=== PATIENT | male | born 1990 | race Caucasian/White ===

== ENCOUNTER 2018-08-10 22:04 | Observation (INO) | payer OTHER ==
--- NOTE | 2018-08-10 23:45 | CT ---
CT HEAD WITHOUT CONTRAST: 08/10/2018 HISTORY: Seizure. COMPARISON: None. TECHNIQUE: Serial axial CT imaging at 5 mm intervals, from the vertex through the skull base, without contrast. FINDINGS: The imaged paranasal sinuses and mastoid air cells are well aerated. There is no intracranial hemorr katherine, midline shift, mass effect, or ventricular enlargement. There is an oval calcification, measuring 0.9 x 2 cm, in the extraaxial region of the left frontal lo be on image 15, which may represent a focal area of dural calcification or a calcified meningioma. IMPRESSION: No acute findings. Incidental findings as detailed above. POS: [facility]
[2018-08-11] MEDS ORDERED: Lorazepam 2 MG/ML VIAL ONE (00:19)
[2018-08-11 00:51] LABS: #Basophils 0.1 thou/uL (0.0-0.2); #Eosinphils 0.1 thou/uL (0.0-0.7); #Lymphocytes 1.9 thou/uL (1.20-3.40); #Monocytes 0.5 thou/uL (0.11-0.59); #Neutrophils 3.6 thou/uL (1.40-6.50); %Basophils 1.1 % (0.0-1.0); %Eosinophils 2.4 % (0.0-10.0); %Lymphocytes 30.6 % (21.0-51.0); %Monocytes 8.2 % (0.0-10.0); %Neutrophils 57.8 % (42.0-75.0); Hemoglobin 13.1 g/dL (14.0-18.0); Mean Corpuscular HGB CONC 34.3 g/dL (32.0-36.0); Mean Corpuscular Hemoglobin 33.7 pg (27.0-31.0); Mean Corpuscular Volume 98.3 fL (78.0-98.0); Platelet Count 249 thou/uL (130-400); RBC Distribution Width 13.5 % (11.5-14.5); Red Blood Cell (RBC) Count 3.88 mill/uL (4.70-6.10); White Blood Cell (WBC) Count 6.2 thou/uL (4.8-10.8)
[2018-08-11] MEDS ORDERED: Fosphenytoin Sodium 1,500 MG in Sodium Chloride 0.9% 100 ML IVPB SCH (01:00)
[2018-08-11 01:18] LABS: ALT (SGPT) 18 U/L (8-55); AST (SGOT) 17 U/L (5-34); Albumin 4.1 g/dL (3.5-5.0); Alkaline Phosphatase 100 U/L (40-150); Anion Gap 11 mmol/L (10-20); BUN (Urea Nitrogen) 6 mg/dL (8.9-20.6); Bilirubin, Total 0.3 mg/dL (0.2-1.2); CK (CPK) 112 U/L (30-200); Calc. Creatinine Clearance 0 mL/min (70-130); Calcium 9.5 mg/dL (7.8-10.44); Carbon Dioxide 26 mmol/L (22-29); Chloride 106 mmol/L (98-107); Estimated GFR-MDRD Greater than 90; Globulin 2.7 g/dL (2.4-3.5); Glucose 97 mg/dL (70-105); Potassium 3.9 mmol/L (3.5-5.1); Protein, Total 6.8 g/dL (6.0-8.3); Sodium 139 mmol/L (136-145)
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
[2018-08-11] MEDS ORDERED: Lorazepam 2 MG/ML VIAL SLOW IVP PRN (03:13)
[2018-08-11] MEDS ORDERED: Ondansetron HCl/PF 4 MG/2 ML Vial IVP PRN ×2 (03:14→03:17)
[2018-08-11] MEDS ORDERED: Acetaminophen 325 MG TAB PO PRN (03:14)
[2018-08-11] MEDS ORDERED: Ondansetron ODT 4 MG TAB SL PRN (03:14)
[2018-08-11] MEDS: Acetaminophen 325 MG TAB PO PRN (03:28)
[2018-08-11] MEDS: Lorazepam 2 MG/ML VIAL SLOW IVP PRN ×2 (03:42→09:03)
[2018-08-11 04:46] VITALS: BMI 19.8
[2018-08-11 05:24] LABS: #Eosinphils 0.2 thou/uL (0.0-0.7); #Lymphocytes 1.5 thou/uL (1.20-3.40); #Monocytes 0.6 thou/uL (0.11-0.59); #Neutrophils 3.3 thou/uL (1.40-6.50); %Basophils 0.6 % (0.0-1.0); %Eosinophils 3.7 % (0.0-10.0); %Lymphocytes 26.3 % (21.0-51.0); %Monocytes 10.4 % (0.0-10.0); Hemoglobin 12.9 g/dL (14.0-18.0); Mean Corpuscular Hemoglobin 33.5 pg (27.0-31.0); Mean Corpuscular Volume 98.6 fL (78.0-98.0); Mean Platelet Volume 7.8 fL (7.4-10.4); Platelet Count 197 thou/uL (130-400); RBC Distribution Width 13.6 % (11.5-14.5); Red Blood Cell (RBC) Count 3.85 mill/uL (4.70-6.10); White Blood Cell (WBC) Count 5.5 thou/uL (4.8-10.8)
[2018-08-11 05:49] LABS: ALT (SGPT) 17 U/L (8-55); AST (SGOT) 17 U/L (5-34); Albumin 3.8 g/dL (3.5-5.0); Alkaline Phosphatase 90 U/L (40-150); Anion Gap 11 mmol/L (10-20); BUN (Urea Nitrogen) 5 mg/dL (8.9-20.6); Bilirubin, Total 0.2 mg/dL (0.2-1.2); Calc. Creatinine Clearance 154 mL/min (70-130); Calcium 8.9 mg/dL (7.8-10.44); Carbon Dioxide 24 mmol/L (22-29); Chloride 108 mmol/L (98-107); Estimated GFR-MDRD Greater than 90; Globulin 2.4 g/dL (2.4-3.5); Glucose 120 mg/dL (70-105); Potassium 3.7 mmol/L (3.5-5.1); Protein, Total 6.2 g/dL (6.0-8.3); Sodium 139 mmol/L (136-145)
[2018-08-11] MEDS: Sodium Chloride 0.9% 1,000 ML IV SCH ×2 (05:58→13:26)
[2018-08-11] MEDS: Levothyroxine 150 MCG TAB PO SCH (06:35)
--- NOTE | 2018-08-11 07:55 | PDOC.EVN ---
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
[2018-08-11] MEDS ORDERED: HumaLOG 300 UNITS/3 ML VIAL SC PRN (07:57)
[2018-08-11] MEDS ORDERED: Dextrose 5% in Water 1,000 ML IV PRN (07:57)
[2018-08-11] MEDS ORDERED: Dextrose 50% Abboject 50 ML SYRINGE SLOW IVP PRN (07:57)
[2018-08-11 07:59] LABS: Amphetamine Not Detected (NotDetected); Barbiturates Screen Detected (NotDetected); Benzodiazepine Screen Detected (NotDetected); Cocaine Metabolite Screen Not Detected (NotDetected); Medtox Control Line Valid? VALID (VALID); Medtox Reader # READER 1; Methadone Not Detected (NotDetected); Methamphetamine Not Detected (NotDetected); Opiate Screen Not Detected (NotDetected); Oxycodone Screen Not Detected (NotDetected); Phencyclidine (PCP) Not Detected (NotDetected); THC/Cannabinoid Screen Not Detected (NotDetected); Tricyclic Screen Not Detected (NotDetected)
[2018-08-11] MEDS ORDERED: Fosphenytoin Sodium 100 MG in Sodium Chloride 0.9% 100 ML IVPB SCH (08:00)
[2018-08-11] MEDS ORDERED: carBAMazepine 200 MG TAB PO SCH (08:00)
[2018-08-11 08:34] LABS: Carbamazepine-Tegretol 4.8 ug/mL (4.0-12.0)
[2018-08-11] MEDS ORDERED: TRIFLUOPERAZINE HCL PO SCH (09:00)
[2018-08-11] MEDS ORDERED: levETIRAcetam In NaCl (Iso-Os) 1,000 MG in Premix Bag 1 BAG IVPB SCH (09:15)
[2018-08-11] MEDS: carBAMazepine 200 MG TAB PO SCH ×2 (09:40→18:05)
[2018-08-11] MEDS: levETIRAcetam 500 MG TAB PO SCH (09:41)
[2018-08-11] MEDS: Oxymetazoline HCl 0.05% (30 ML BOT) NS SCH ×4 (13:12→18:08)
[2018-08-11] MEDS ORDERED: TRIFLUOPERAZINE HCL 10 MG PO SCH (21:00)
[2018-08-11] MEDS ORDERED: levETIRAcetam 1,000 MG in Sodium Chloride 0.9% 100 ML IVPB SCH (21:00)
[2018-08-11] MEDS: levETIRAcetam In NaCl (Iso-Os) 1,000 MG in Premix Bag 1 BAG IVPB SCH (22:52)
[2018-08-12] MEDS: Sodium Chloride 0.9% 1,000 ML IV SCH ×4 (03:50→21:42)
[2018-08-12] MEDS: Oxymetazoline HCl 0.05% (30 ML BOT) NS SCH ×7 (04:34→21:44)
[2018-08-12] MEDS: FLUoxetine HCl 20 MG CAP PO SCH ×2 (04:35→19:44)
[2018-08-12] MEDS: levETIRAcetam 500 MG TAB PO SCH ×2 (04:35→09:28)
[2018-08-12] MEDS: Levothyroxine 150 MCG TAB PO SCH (06:27)
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
--- NOTE | 2018-08-12 07:45 | PDOC.EVN ---
Attending Addendum - Attending Addendum Date/Time: 08/12/18 0743 I personally evaluated the patient and discussed the management with Dr. Payan. I agree with the History, Examination, Assessment and Plan documented in his progress note with any addition or exceptions noted below. Patient complains of headache this morning. He has not had any seizure activity since yesterday morning. Reports chronic headaches. Awaiting neuro consult today. Continue on IV Keppra but will transition back to PO AEDs. Normal prolactin during seizure activity yesterday and eye deviation did not occur during direct observation of seizure activity until I began staring at his eyes yesterday. Consider in this case that some of this may be for secondary gain. After neuro recs, the patient will likely be stable for discharge back to his facility and no other serious cause of increased seizure activity has been noted.
--- NOTE | 2018-08-12 09:16 | EEG ---
Referring Physician: Micah HEBERT EEG # [id number] TEST TYPE: ROUTINE PORTABLE INPATIENT REPORT: AN EEG USING THE INTERNATIONAL TEN-TWENTY SYSTEM OF ELECTRODE PLACEMENT WAS PERFORMED. The waking background is a low amplitude 10 hertz Alpha frequency. The patient became drowsy during the study. Hyperventilation and photic stimulation were unremarkable. No epileptiform features were seen. IMPRESSION: NORMAL AWAKE AND DROWSY EEG. Tutor Coordinator: MARCO A [employer] Admin: [email or web address] [email or web address]
[2018-08-12] MEDS: carBAMazepine 200 MG TAB PO SCH ×2 (09:28→17:54)
[2018-08-12] MEDS: Acetaminophen 325 MG TAB PO PRN ×2 (09:29→19:44)
[2018-08-12] MEDS: levETIRAcetam In NaCl (Iso-Os) 1,000 MG in Premix Bag 1 BAG IVPB SCH ×2 (10:18→21:43)
[2018-08-12] MEDS: Lorazepam 2 MG/ML VIAL SLOW IVP PRN (12:51)
[2018-08-12] MEDS ORDERED: levETIRAcetam 500 MG TAB PO SCH (21:00)
[2018-08-12 21:29] VITALS: BP 121/84; TEMP 98.7
--- NOTE | 2018-08-12 23:45 | CON ---
DATE OF CONSULTATION: 08/12/2018 CONSULTING PHYSICIAN: Hospitalist Service. IMPRESSION: Recurrent seizures with a history of epilepsy, dating back a number of years with a fail ure of several different anticonvulsants. PLAN: 1. Continue Tegretol 200 mg 3 times a day. 2. Keppra 1500 mg twice a day. 3. The patient will be discharged back to his unit. Mr. Mcguire is a 28-year-old man with a history of seizures dating back over 10 years. He has been tr eated with Depakote as an outpatient in the past. He was switched over to Dilantin, which did not se em to be effective. He has been on Tegretol and Keppra, as his most recent therapy for the last few years. He had a recurrent seizure and was brought in. He had an EEG done, which did not show any si gnificant problems. He complains of severe headache, but otherwise has no focal complaints. PAST MEDICAL HISTORY: Otherwise, negative. ALLERGIES: LATEX and MUSHROOMS. SOCIAL HISTORY: Currently an inmate in the [employer] system. FAMILY HISTORY: Noncontributory. REVIEW OF SYSTEMS: Otherwise, negative. PHYSICAL EXAMINATION: GENERAL: This is a thin young man, lying in bed, in 4-point restraints. HEENT: Unremarkable. NEUROLOGIC EXAM: He is alert and cooperative. He answers appropriately. Speech is fluent and clear . His exam is nonfocal. No abnormal movements were seen. SUMMARY: A young man with chronic epilepsy. We can make adjustments in his dosing and refer him tyree k to his unit.
--- NOTE | 2018-08-14 01:29 | DIS-2 ---
DATE OF ADMISSION: 08/11/2018 DATE OF DISCHARGE: 08/12/2018 RESIDENT: Dr. Dangelo Payan. ADMITTING ATTENDING: Magdi Monge MD DISCHARGE ATTENDING: Magdi Monge MD CONSULTATIONS: Neurology, Dr. Demario Mei. PROCEDURES: Brain CT negative for acute findings. EEG negative for acute findings. PRIMARY DIAGNOSIS: Seizure disorder. SECONDARY DIAGNOSES: Schizophrenia, schizoaffective disorder, bipolar disorder, hypothyroidism. DISCHARGE MEDICATIONS: Keppra 1500 mg twice daily, levothyroxine 150 mcg daily, trifluoperazine 4 mg daily, trifluoperazine 10 mg nightly, Dilantin 300 mg every evening, Prozac 20 mg every night, carba mazepine 200 mg twice daily. HISTORY OF PRESENT ILLNESS AND HOSPITAL COURSE: This is a 28-year-old male who presented from residential w ith chief complaint of tonic-clonic seizures. He has a past medical history of seizure disorder seco ndary to traumatic brain injury in 2016. States he does not remember it much having the seizures. B oth the guards and the nurse recorded report a series of seizures that were tonic in nature. The a rd reported four seizures since patient left the [facility] that morning. Patient had responded to me dications given in the ED, which included Ativan and fosphenytoin. Patient had a brain CT, which was negative for acute findings. There was an EEG completed, which was also negative for acute findings. Patient was seen by Neurology and dosage of Keppra was adjusted. Patient had a questionable seizures during the stay in the hospital. The patient would often resolv e the seizures when threatened to be changed to n.p.o. status because of seizures per nursing notes. EEG showed no acute changes. Patient was stable upon discharge with adjusted medications including increased dose of Keppra. DISPOSITION: Stable. DISCHARGE INSTRUCTIONS: 1. Location: [facility]. 2. Diet: Regular. 3. Activity: As tolerated. 4. Follow up: Primary care provider within 1 week, Neurology in 1 month or followup with Neurology sooner if needed.
== END 2018-08-12 21:48 ==
LOC: ERS 22:04 → EEVIPCON 22:04 → 2SE 08-11 00:30
PROVIDERS: ADMIT Student in an Organized Health Care Education/Training Program; ATTEND Student in an Organized Health Care Education/Training Program
DX: G40.409 Other generalized epilepsy and epileptic syndromes, not intractable, without status epilepticus (principal); F31.9 Bipolar disorder, unspecified; F20.9 Schizophrenia, unspecified; E03.9 Hypothyroidism, unspecified; Z79.899 Other long term (current) drug therapy; Z91.040 Latex allergy status; Z91.018 Allergy to other foods
CPT/HCPCS: 36415; 70450; 80053; 80156; 80177; 80306; 82550; 84146; 84439; 84443; 85025; 95816; 95819; 96361; 96365; 96367; 96375; 96376; G0378; J1953; J2060; J7050; Q2009

== ENCOUNTER 2024-05-18 17:42 | Inpatient (IN) | payer OTHER ==
[2024-05-18 18:59] LABS: #Basophils Less than 0.03 10x3/uL (0.0-0.2); %Basophils 0.3 % (0.0-1.0); %Eosinophils 2.4 % (0.0-10.0); %Monocytes 11.3 % (0.0-10.0); %Neutrophils 53.5 % (42.0-75.0); Hematocrit 36.4 % (42.0-52.0); Hemoglobin 12.3 g/dL (14.0-18.0); Mean Corpuscular HGB CONC 33.8 g/dL (32.0-36.0); Mean Corpuscular Hemoglobin 35.2 pg (27.0-31.0); Mean Corpuscular Volume 104.3 fL (78.0-98.0); Platelet Count 140 10x3/uL (130-400); RBC Distribution Width 12.4 % (11.5-14.5); Red Blood Cell (RBC) Count 3.49 mill/uL (4.70-6.10)
[2024-05-18 19:04] LABS: Dilantin 5.1 ug/mL (10.0-20.0)
[2024-05-18 19:13] LABS: ALT (SGPT) 16 U/L (8-55); AST (SGOT) 17 U/L (5-34); Albumin 3.6 g/dL (3.5-5.0); Alkaline Phosphatase 64 U/L (40-110); Anion Gap 14 mmol/L (10-20); BUN (Urea Nitrogen) 8 mg/dL (8.9-20.6); Bilirubin, Total 0.2 mg/dL (0.2-1.2); Calc. Creatinine Clearance 0 mL/min (70-130); Calcium 8.5 mg/dL (7.8-10.44); Carbon Dioxide 21 mmol/L (22-29); Chloride 105 mmol/L (98-107); Estimated GFR 115; Globulin 2.2 g/dL (2.4-3.5); Glucose 89 mg/dL (70-105); Potassium 3.6 mmol/L (3.5-5.1); Protein, Total 5.8 g/dL (6.0-8.3); Sodium 136 mmol/L (136-145)
[2024-05-18] MEDS ORDERED: levETIRAcetam 500 MG (5 mL) VIAL ONE ×2 (20:11→20:14)
[2024-05-18] MEDS ORDERED: LORazepam 2 MG/ML SYR.(CARPUJECT) ONE ×2 (23:04→23:15)
[2024-05-18 23:20] LABS: Amphetamine Not Detected (NotDetected); Barbiturates Screen Detected (NotDetected); Benzodiazepine Screen Detected (NotDetected); Cocaine Metabolite Screen Not Detected (NotDetected); Methadone Not Detected (NotDetected); Methamphetamine Not Detected (NotDetected); Opiate Screen Not Detected (NotDetected); Oxycodone Screen Not Detected (NotDetected); Phencyclidine (PCP) Not Detected (NotDetected); THC/Cannabinoid Screen Not Detected (NotDetected); Tricyclic Screen Not Detected (NotDetected)
[2024-05-19 01:00] VITALS: BMI 27.2
[2024-05-19] MEDS ORDERED: Acetaminophen 650 MG Suppository PR PRN (01:01)
[2024-05-19] MEDS ORDERED: Acetaminophen 325 MG TAB PO PRN (01:01)
[2024-05-19] MEDS ORDERED: Ondansetron PF 4 MG/2 ML Vial IVP PRN (01:01)
[2024-05-19] MEDS ORDERED: Ondansetron ODT 4 MG TAB PO PRN (01:01)
[2024-05-19 05:07] LABS: #Basophils 0.03 10x3/uL (0.0-0.2); %Basophils 0.5 % (0.0-1.0); %Eosinophils 2.9 % (0.0-10.0); %Lymphocytes 35.6 % (21.0-51.0); %Monocytes 13.7 % (0.0-10.0); %Neutrophils 46.8 % (42.0-75.0); Hematocrit 39.3 % (42.0-52.0); Hemoglobin 13.3 g/dL (14.0-18.0); Mean Corpuscular HGB CONC 33.8 g/dL (32.0-36.0); Mean Corpuscular Hemoglobin 34.5 pg (27.0-31.0); Mean Corpuscular Volume 101.8 fL (78.0-98.0); Mean Platelet Volume 10.8 fL (7.4-10.4); Platelet Count 156 10x3/uL (130-400); RBC Distribution Width 12.4 % (11.5-14.5); Red Blood Cell (RBC) Count 3.86 mill/uL (4.70-6.10)
[2024-05-19 05:31] LABS: Anion Gap 13 mmol/L (10-20); BUN (Urea Nitrogen) 7 mg/dL (8.9-20.6); Calc. Creatinine Clearance 148 mL/min (70-130); Carbon Dioxide 25 mmol/L (22-29); Chloride 106 mmol/L (98-107); Estimated GFR 114; Glucose 85 mg/dL (70-105); Magnesium 2.2 mg/dL (1.6-2.6); Potassium 4.1 mmol/L (3.5-5.1); Sodium 140 mmol/L (136-145)
[2024-05-19] MEDS: levETIRAcetam 500 MG TAB PO SCH (08:04)
[2024-05-19] MEDS: Phenytoin Extended Release 100 MG CAP PO SCH (08:04)
[2024-05-19] MEDS ORDERED: Famotidine 20 MG TAB PO SCH (09:00)
[2024-05-19] MEDS ORDERED: Famotidine/PF 20 mg/2ml Vial SLOW IVP SCH (09:00)
[2024-05-19] MEDS: Pantoprazole DR 40 MG TAB PO SCH (09:17)
[2024-05-19] MEDS: Aripiprazole 15 MG TAB PO SCH (09:17)
[2024-05-19] MEDS: carBAMazepine 200 MG TAB PO SCH (09:17)
[2024-05-19] MEDS: Divalproex Sodium DR 500 MG TAB PO SCH (09:17)
[2024-05-19 12:01] LABS: Carbamazepine-Tegretol 4.2 ug/mL (4.0-12.0)
[2024-05-19] MEDS ORDERED: Diazepam 5 MG TAB PO SCH (14:30)
[2024-05-19] MEDS: FLUoxetine HCl 20 MG CAP PO SCH (21:41)
[2024-05-20] MEDS: Levothyroxine Sodium 100 MCG TAB PO SCH (06:49)
[2024-05-20] MEDS: Diazepam 5 MG TAB PO SCH (08:15)
[2024-05-20] MEDS: Enoxaparin 40 MG (0.4 mL) SYRINGE SC SCH (08:16)
[2024-05-20 10:18] LABS: Carbamazepine-Tegretol 6.7 ug/mL (4.0-12.0)
[2024-05-20 12:04] VITALS: BP 129/78; TEMP 97.8
== END 2024-05-20 13:10 | DRG 101 ==
LOC: ERS 17:42 → 2SE 22:13 → OBSVTOIN 05-19 16:57 → EEVIPCON 05-19 16:57
PROVIDERS: ADMIT Neurological Surgery; ATTEND Family Medicine
PROC: 4A00X4Z Measurement of Central Nervous Electrical Activity, External Approach (ICD-10-PCS; principal; 2024-05-19)
DX: G40.909 Epilepsy, unspecified, not intractable, without status epilepticus (principal); F32.A Depression, unspecified; F20.9 Schizophrenia, unspecified; Z98.890 Other specified postprocedural states; Z91.040 Latex allergy status; Z91.018 Allergy to other foods; Z79.899 Other long term (current) drug therapy; Z79.890 Hormone replacement therapy
CPT/HCPCS: 36415; 70450; 70551; 80048; 80053; 80156; 80164; 80177; 80185; 80306; 83735; 85025; 95700; 95711; 95819; G0378; J1650; J1953; J2060